=== PATIENT | female | born 2000 | race Caucasian/White ===

== ENCOUNTER 2020-07-25 14:09 | Day surgery (SDC) | payer BC ==
[2020-07-25] MEDS ORDERED: hydrALAZINE 20 MG/ML VIAL SLOW IVP PRN (15:24)
[2020-07-25 15:49] LABS: #Basophils 0.1 10x3/uL (0.0-0.2); #Eosinphils 0.1 10x3/uL (0.0-0.5); #Neutrophils 9.7 10x3/uL (1.5-8.4); %Basophils 0.5 % (0.0-2.0); %Eosinophils 0.9 % (0.0-6.0); %Lymphocytes 13.2 % (18.0-47.0); %Monocytes 7.7 % (0.0-10.0); %Neutrophils 76.4 % (40.0-75.0); Mean Corpuscular HGB CONC 34.4 g/dL (32.0-36.0); Mean Corpuscular Hemoglobin 30.6 pg (27.0-33.0); Mean Corpuscular Volume 88.9 fl (81.6-98.3); Mean Platelet Volume 9.4 fl (7.4-10.4); Platelet Count 233 10x3/uL (150-450); RBC Distribution Width 13.2 % (11.5-14.5); Red Blood Cell (RBC) Count 4.25 10x6/uL (3.90-5.03); White Blood Cell (WBC) Count 12.7 10x3/uL (3.5-10.5)
[2020-07-25 16:01] LABS: ALT (SGPT) 14 U/L (8-55); AST (SGOT) 10 U/L (5-34); Albumin 3.4 g/dL (3.5-5.0); Alkaline Phosphatase 99 U/L (40-100); Anion Gap 15 mmol/L (10-20); BUN (Urea Nitrogen) 8 mg/dL (7.0-18.7); Bilirubin, Total 0.2 mg/dL (0.2-1.2); Calc. Creatinine Clearance 0 mL/min (70-130); Calcium 8.7 mg/dL (7.8-10.44); Carbon Dioxide 21 mmol/L (22-29); Chloride 105 mmol/L (98-107); Globulin 3.1 g/dL (2.4-3.5); Glucose 88 mg/dL (70-105); Potassium 3.8 mmol/L (3.5-5.1); Protein, Total 6.5 g/dL (6.0-8.3); Sodium 137 mmol/L (136-145)
[2020-07-25 16:41] LABS: Creatinine, Urine Less than 20.00 mg/dL (47-110); Protein, Urine Random Quant Less than 10 mg/dL (1-14)
== END 2020-07-25 17:17 | disposition home or self-care (01) ==
LOC: CSHLD/OP 14:09
PROVIDERS: ATTEND Obstetrics & Gynecology
DX: O13.3 Gestational [pregnancy-induced] hypertension without significant proteinuria, third trimester (principal); Z3A.36 36 weeks gestation of pregnancy
CPT/HCPCS: 36415; 80053; 82570; 84156; 85025; 99282

== ENCOUNTER 2020-07-31 09:45 | Outpatient (CLI) | payer BC ==
[2020-07-31 20:43] LABS: SARS-CoV-2 PCR by NAA Not Detected (NotDetected)
== END 2020-07-31 09:46 | disposition home or self-care (01) ==
LOC: CSHLAB 09:45
PROVIDERS: ATTEND Obstetrics & Gynecology
DX: Z20.822 Contact with and (suspected) exposure to COVID-19 (principal)
CPT/HCPCS: 87635; U0003; U0005

== ENCOUNTER 2020-08-04 17:32 | Inpatient (IN) | payer BC ==
[2020-08-04 18:25] VITALS: BMI 34.0
[2020-08-04] MEDS ORDERED: Morphine 4 MG/ML VIAL IM SCH (18:45)
[2020-08-04] MEDS ORDERED: Promethazine HCl 25 MG/ML VIAL IM SCH (18:45)
[2020-08-04] MEDS ORDERED: Promethazine HCl 25 MG/ML VIAL IM PRN (23:28)
[2020-08-04] MEDS ORDERED: Lidocaine 1% (PF) 30 ML VIAL SC PRN (23:28)
[2020-08-04] MEDS ORDERED: hydrALAZINE 20 MG/ML VIAL SLOW IVP PRN (23:28)
[2020-08-04] MEDS ORDERED: Ibuprofen 800 MG TAB PO PRN (23:28)
[2020-08-04] MEDS ORDERED: HYDROcodone/Acetaminophen 5/325 mg Tablet PO PRN (23:28)
[2020-08-04] MEDS ORDERED: Lactated Ringer's 1,000 ML IV SCH (23:30)
[2020-08-04] MEDS ORDERED: Morphine 4 MG/ML VIAL IM PRN (23:32)
[2020-08-04] MEDS ORDERED: NS w/ Oxytocin 30 units 500 ML IV PRN (23:36)
[2020-08-05 06:47] LABS: Mean Corpuscular HGB CONC 34.6 g/dL (32.0-36.0); Mean Corpuscular Hemoglobin 30.4 pg (27.0-33.0); Mean Corpuscular Volume 87.9 fl (81.6-98.3); Mean Platelet Volume 9.9 fl (7.4-10.4); Platelet Count 255 10x3/uL (150-450); RBC Distribution Width 13.3 % (11.5-14.5); Red Blood Cell (RBC) Count 4.28 10x6/uL (3.90-5.03); White Blood Cell (WBC) Count 14.8 10x3/uL (3.5-10.5)
[2020-08-05] MEDS ORDERED: NS w/ Oxytocin 30 units 500 ML IVPB SCH (07:00)
[2020-08-05 07:22] LABS: Hep B Surf Ag Non-Reactive S/CO (NonReactive)
[2020-08-05 07:23] LABS: Syphilis Antibody Nonreactive (Nonreactive); Syphilis Antibody Index 0.01 S/CO (<1.00 Non-Reactive)
[2020-08-05 07:45] LABS: HBSAg Index 0.14 S/CO (0-0.99)
[2020-08-05] MEDS ORDERED: Fentanyl 4 mcg/Bup 0.1% Cadd 100 ML ONE ×2 (07:57→16:46)
[2020-08-05] MEDS ORDERED: Bupivacaine PF 0.5% 30 ML VIAL ONE (08:00)
[2020-08-05] MEDS ORDERED: Bupivacaine 0.25% HCL 30 ML VIAL ONE (08:00)
[2020-08-05] MEDS ORDERED: diphenhydrAMINE 50 MG/ML VIAL IVP PRN ×2 (08:38→09:43)
[2020-08-05] MEDS ORDERED: Ondansetron PF 4 MG/2 ML Vial IVP PRN ×2 (08:38→09:43)
[2020-08-05] MEDS ORDERED: Eucerin (Mineral Oil/Petrolatum,White) 30 gm Jar TOP PRN ×2 (08:38→09:43)
[2020-08-05] MEDS ORDERED: Lactated Ringer's 500 ML IV PRN ×2 (08:38→09:43)
[2020-08-05] MEDS ORDERED: Naloxone HCl 0.4 mg/ml Vial IVP PRN ×4 (08:38→09:43)
[2020-08-05] MEDS ORDERED: ePHEDrine 50 MG/ML VIAL SLOW IVP PRN ×2 (08:38→09:43)
[2020-08-05] MEDS ORDERED: Acetaminophen 325 MG TAB PO PRN ×2 (08:38→09:43)
[2020-08-05] MEDS ORDERED: Promethazine HCl 25 MG/ML VIAL IM PRN ×2 (08:38→09:43)
[2020-08-05] MEDS ORDERED: Communication Order-Pharmacy FS SCH ×2 (08:45→09:45)
[2020-08-05] MEDS ORDERED: Fentanyl 4 mcg/Bupivacaine 0.1% Cassette 100 ML EPIDURAL SCH (08:45)
[2020-08-05] MEDS ORDERED: Azithromycin 500 MG VIAL ONE (20:21)
[2020-08-05] MEDS ORDERED: Famotidine/PF 20 mg/2ml Vial SLOW IVP PRN (20:39)
[2020-08-05] MEDS ORDERED: Bicitra 30 ML UDCUP PO PRN (20:39)
[2020-08-05] MEDS ORDERED: CEFAZOLIN 2 GM in Premix Bag 1 BAG IVPB SCH (20:45)
[2020-08-05] MEDS ORDERED: Azithromycin 500 MG in Sodium Chloride 0.9% 250 ML 250 ML IVPB SCH (20:45)
[2020-08-05] MEDS ORDERED: Ondansetron PF 4 MG/2 ML Vial ONE (20:46)
[2020-08-05] MEDS ORDERED: Dexamethasone 4 mg/ml Vial ONE (20:46)
[2020-08-05] MEDS ORDERED: Morphine PF 10 MG/10 ML VIAL ONE (20:47)
[2020-08-05] MEDS ORDERED: Ketorolac Tromethamine 15 MG/ML VIAL ONE (20:47)
[2020-08-05] MEDS ORDERED: Oxytocin 10 UNITS/ML VIAL ONE ×3 (20:48→21:21)
[2020-08-05] MEDS ORDERED: diphenhydrAMINE 50 MG/ML VIAL ONE (21:24)
[2020-08-05] MEDS ORDERED: Misoprostol 200 MCG TAB PR SCH (21:50)
[2020-08-05] MEDS: Misoprostol 200 MCG TAB ONE (21:52)
[2020-08-06] MEDS ORDERED: Misoprostol 200 MCG TAB PR PRN (01:31)
[2020-08-06] MEDS ORDERED: Ondansetron PF 4 MG/2 ML Vial IVP PRN ×2 (01:31→02:15)
[2020-08-06] MEDS ORDERED: Promethazine HCl 25 MG/ML VIAL IM PRN ×2 (01:31→02:15)
[2020-08-06] MEDS ORDERED: NS / Oxytocin 40 units/1000ml 1,000 ML IV SCH (01:31)
[2020-08-06] MEDS ORDERED: Simethicone Chewable 80 MG TAB PO PRN (01:31)
[2020-08-06] MEDS ORDERED: HYDROcodone/Acetaminophen 5/325 mg Tablet PO PRN ×3 (01:31→11:41)
[2020-08-06] MEDS ORDERED: hydrALAZINE 20 MG/ML VIAL SLOW IVP PRN (01:31)
[2020-08-06] MEDS ORDERED: Meperidine HCl/PF 25 MG/ML VIAL IM PRN ×2 (01:31→14:15)
[2020-08-06] MEDS ORDERED: Zolpidem Tartrate 5 MG TAB PO PRN (01:31)
[2020-08-06] MEDS ORDERED: diphenhydrAMINE 25 MG CAP PO PRN (01:31)
[2020-08-06] MEDS ORDERED: Lanolin Ointment 7 GM TUBE TOP PRN (01:31)
[2020-08-06] MEDS: Misoprostol 200 MCG TAB ONE (02:08)
[2020-08-06] MEDS ORDERED: Naloxone HCl 0.4 mg/ml Vial IVP PRN ×2 (02:15)
[2020-08-06] MEDS ORDERED: Meperidine HCl/PF 25 MG/ML VIAL SLOW IVP PRN (02:15)
[2020-08-06] MEDS ORDERED: Naloxone HCl 0.4 mg/ml Vial IV PRN (02:15)
[2020-08-06] MEDS ORDERED: Eucerin (Mineral Oil/Petrolatum,White) 30 gm Jar TOP PRN (02:15)
[2020-08-06] MEDS ORDERED: Promethazine HCl 25 MG SUPP PR PRN (02:15)
[2020-08-06] MEDS ORDERED: diphenhydrAMINE 50 MG/ML VIAL IVP PRN (02:15)
[2020-08-06] MEDS ORDERED: Ketorolac Tromethamine 30 MG/ML VIAL IVP PRN (02:15)
[2020-08-06] MEDS ORDERED: Ketorolac Tromethamine 30 MG/ML VIAL IVP SCH (02:15)
[2020-08-06] MEDS ORDERED: L&D-Morphine 4 MG/ML VIAL SLOW IVP PRN (02:15)
[2020-08-06] MEDS ORDERED: Ondansetron HCl/PF 4 MG/2 ML Vial IVP PRN (02:15)
[2020-08-06] MEDS ORDERED: Communication Order-Pharmacy FS SCH (02:15)
[2020-08-06] MEDS ORDERED: HYDROmorphone 2 MG/ML VIAL SLOW IVP PRN (02:15)
[2020-08-06] MEDS: Lactated Ringer's 1,000 ML IV SCH ×3 (04:50→17:59)
[2020-08-06] MEDS: Ibuprofen 800 MG TAB PO SCH ×3 (06:01→22:00)
[2020-08-06 06:41] LABS: Hemoglobin 8.8 g/dL (12.0-15.5); Mean Corpuscular HGB CONC 34.1 g/dL (32.0-36.0); Mean Corpuscular Hemoglobin 30.8 pg (27.0-33.0); Mean Corpuscular Volume 90.2 fl (81.6-98.3); Mean Platelet Volume 9.7 fl (7.4-10.4); Platelet Count 164 10x3/uL (150-450); RBC Distribution Width 13.6 % (11.5-14.5); Red Blood Cell (RBC) Count 2.86 10x6/uL (3.90-5.03); White Blood Cell (WBC) Count 19.9 10x3/uL (3.5-10.5)
[2020-08-06] MEDS ORDERED: Adacel (T-DAP) 0.5 ML SYRINGE IM ONE (09:00)
[2020-08-06] MEDS: Ferrous Sulfate 325 MG TAB PO SCH ×2 (09:08→21:08)
[2020-08-06] MEDS: Docusate Calcium (SURFAK) 240 MG CAP PO SCH ×2 (09:08→21:08)
[2020-08-06] MEDS: Prenatal Vitamin 1 TAB PO SCH (09:08)
[2020-08-06] MEDS: HYDROcodone/Acetaminophen 5/325 mg Tablet PO PRN ×3 (11:56→21:07)
[2020-08-06 23:19] VITALS: TEMP 97.8
[2020-08-07] MEDS: Ibuprofen 800 MG TAB PO SCH (03:03)
[2020-08-07] MEDS: HYDROcodone/Acetaminophen 5/325 mg Tablet PO PRN ×2 (03:04→08:49)
[2020-08-07] MEDS: Lactated Ringer's 1,000 ML IV SCH (07:31)
[2020-08-07 07:48] VITALS: BP 111/57
[2020-08-07] MEDS: Prenatal Vitamin 1 TAB PO SCH (08:49)
[2020-08-07] MEDS: Ferrous Sulfate 325 MG TAB PO SCH (08:49)
[2020-08-07] MEDS: Docusate Calcium (SURFAK) 240 MG CAP PO SCH (08:49)
== END 2020-08-07 12:57 | disposition home or self-care (01) | DRG 787 ==
LOC: CSHLD/OP 17:32 → CSHLD 23:29 → UNDOADMIN 08-05 03:34 → CSHLD 08-06 00:59 → CSHPP 08-06 00:59
PROVIDERS: ADMIT Obstetrics & Gynecology; ATTEND Obstetrics & Gynecology
PROC: 0U7C7ZZ Dilation of Cervix, Via Natural or Artificial Opening (ICD-10-PCS; 2020-08-04)
PROC: 3E033VJ Introduction of Other Hormone into Peripheral Vein, Percutaneous Approach (ICD-10-PCS; 2020-08-04)
PROC: 10D00Z1 Extraction of Products of Conception, Low, Open Approach (ICD-10-PCS; principal; 2020-08-05)
DX: O13.4 Gestational [pregnancy-induced] hypertension without significant proteinuria, complicating childbirth (principal); D62 Acute posthemorrhagic anemia; O98.32 Other infections with a predominantly sexual mode of transmission complicating childbirth; Z3A.38 38 weeks gestation of pregnancy; Z37.0 Single live birth; Z20.822 Contact with and (suspected) exposure to COVID-19; O76 Abnormality in fetal heart rate and rhythm complicating labor and delivery; O62.0 Primary inadequate contractions; O64.0XX0 Obstructed labor due to incomplete rotation of fetal head, not applicable or unspecified; O90.81 Anemia of the puerperium; O72.1 Other immediate postpartum hemorrhage; Z79.899 Other long term (current) drug therapy; A60.09 Herpesviral infection of other urogenital tract
CPT/HCPCS: 36415; 51702; 85027; 86780; 86850; 86900; 86901; 87340; 99285; J1100; J1200; J1885; J2270; J2274; J2405; J2550; J2590; S0020

== ENCOUNTER 2020-09-07 10:18 | Emergency (ER) | payer BC | END 2020-09-07 11:35 | disposition home or self-care (01) | LOC: CSHERS 10:18 | DX: O75.4 Other complications of obstetric surgery and procedures (principal) | CPT/HCPCS: 99283 ==